=== PATIENT | male | born 1990 | race Caucasian/White ===

== ENCOUNTER → 2022-12-11 | Outpatient (CLI) | payer OTHER | LOC: M RAD 16:32 | PROVIDERS: ATTEND Physician Assistant | DX: M43.16 Spondylolisthesis, lumbar region (principal); M51.36 Other intervertebral disc degeneration, lumbar region; M51.26 Other intervertebral disc displacement, lumbar region; G96.198 Other disorders of meninges, not elsewhere classified ==

== ENCOUNTER 2023-06-10 05:50 | Day surgery (SDC) | payer OTHER ==
[~2023-06-10] VITALS: Ht 195.6 cm; Wt 87.1 kg
[~2023-06-10 05:50] MED LIST: ADVA115A; ALBU8.5H; ALLE24TA7 PO; AMPH1TAB2 PO; FLUT50SP17; METH-1164 PO; OMEP-173 PO
[2023-06-10] MEDS ORDERED: ceFAZolin SOD 2 GM in IV 1 EA IV ONE (06:00)
[2023-06-10] MEDS ORDERED: LR 1,000 ML IV SCH ×3 (06:10→12:10)
[2023-06-10] MEDS ORDERED: VANCOMYCIN 500MG/10ML VIAL As Ordered ONE (07:21)
[2023-06-10] MEDS ORDERED: dexmedeTOMIDine (4MCG/ML)200MCG/50ML BTL (PRECEDEX) As Ordered ONE (07:57)
[2023-06-10] MEDS ORDERED: KETOROLAC 60MG 2ML VIAL As Ordered ONE (08:15)
[2023-06-10] MEDS ORDERED: METOCLOPRAMIDE INJ 10MG/2ML VIAL As Ordered ONE (08:15)
[2023-06-10] MEDS ORDERED: LIDOCAINE 2% 100MG/5ML SDV (FOR ANES.) As Ordered ONE (08:15)
[2023-06-10] MEDS ORDERED: ONDANSETRON 4MG 2ML VIAL As Ordered ONE (08:15)
[2023-06-10] MEDS ORDERED: ROCURONIUM BROMIDE 50MG/5ML VIAL As Ordered ONE (08:15)
[2023-06-10] MEDS ORDERED: propofoL 200 MG/20 ML VIAL As Ordered ONE (08:15)
[2023-06-10] MEDS ORDERED: MIDAZOLAM INJ 2MG/2ML VIAL As Ordered ONE (08:15)
[2023-06-10] MEDS ORDERED: SEVOFLURANE INHAL SOLN 250 ML BTL As Ordered ONE (08:15)
[2023-06-10] MEDS ORDERED: ACETAMINOPHEN 1000MG 100ML IV BAG As Ordered ONE (08:15)
[2023-06-10] MEDS ORDERED: fentaNYL 250 MCG/5 ML INJECTION As Ordered ONE (08:15)
[2023-06-10] MEDS ORDERED: SUGAMMADEX SODIUM 500 MG/5 ML VIAL (BRIDION) As Ordered ONE (08:15)
[2023-06-10] MEDS: TRANEXAMIC ACID 100 MG/ML 10ML VIAL IV ONE (08:30)
[2023-06-10] MEDS ORDERED: TRANEXAMIC ACID 100 MG/ML 10ML VIAL As Ordered ONE (08:32)
[2023-06-10] MEDS ORDERED: DESFLURANE 240 ML INHALANT As Ordered ONE (09:09)
[2023-06-10] MEDS ORDERED: fentaNYL 100 MCG/2 ML INJECTION IV PRN (10:25)
[2023-06-10] MEDS ORDERED: HYDROMORPHONE HCL 0.5 MG/ 0.5 ML SYRINGE IV PRN (10:25)
[2023-06-10] MEDS ORDERED: oxyCODONE 5MG TAB PO PRN (10:25)
[2023-06-10] MEDS ORDERED: ONDANSETRON 4MG 2ML VIAL IV PRN (10:25)
[2023-06-10 12:40] VITALS: BP 134/72; TEMP 97.4; O2SAT 95
== END 2023-06-10 12:45 | disposition home or self-care (01) ==
LOC: M SDC 05:50
PROVIDERS: ATTEND Orthopaedic Surgery
DX: M25.372 Other instability, left ankle (principal); M25.872 Other specified joint disorders, left ankle and foot; M65.9 Synovitis and tenosynovitis, unspecified; J45.909 Unspecified asthma, uncomplicated; Z79.899 Other long term (current) drug therapy; Z87.891 Personal history of nicotine dependence; F90.9 Attention-deficit hyperactivity disorder, unspecified type
CPT/HCPCS: 27698; 29895; 76000; C1713; C9290; J0131; J0665; J1100; J1885; J2250; J2405; J2765; J3010; J3370

== ENCOUNTER → 2023-08-07 | Outpatient (CLI) | payer OTHER ==
[~2023-08-07] MED LIST changes: -FLUT50SP17; +FLUTISP
== END ==
LOC: M PLAIMG 08:02
PROVIDERS: ATTEND Physician Assistant
DX: M79.642 Pain in left hand (principal); M25.532 Pain in left wrist

== ENCOUNTER → 2023-09-14 | Outpatient (CLI) | payer OTHER | LOC: M PLAIMG 10:27 | PROVIDERS: ATTEND Physician Assistant | DX: Q79.60 Ehlers-Danlos syndrome, unspecified (principal) ==